=== PATIENT | male | born 1970 | race Caucasian/White ===

== ENCOUNTER 2018-11-28 17:13 | Emergency (ER) | payer OTHER ==
[~2018-11-28] VITALS: Ht 172.7 cm; Wt 107.5 kg
[2018-11-28 17:21] VITALS: Ht 172.7 cm; Wt 107.5 kg
[2018-11-28 19:06] LABS: CALCIUM 8.6 mg/dL (8.5-10.1); CARBON DIOXIDE 28.6 mmol/L (21-32); CHLORIDE SERUM 105 mmol/L (98-107); CREATININE SERUM 1.2 mg/dL (0.7-1.3); GFR1 > 60 mL/min; GLUCOSE SERUM 94 mg/dL (74-106); POTASSIUM SERUM 4.5 mmol/L (3.5-5.1); SODIUM SERUM 141 mmol/L (136-145)
[2018-11-28 19:11] LABS: ALKALINE PHOSPHATASE 92 U/L (46-116); ALT/SGPT 67 U/L (16-63); AST/SGOT 30 U/L (15-37); BILIRUBIN TOTAL 0.46 mg/dL (0.20-1.00); TOTAL PROTEIN, SERUM 7.2 g/dL (6.4-8.2)
[2018-11-28 19:12] LABS: ALBUMIN 3.3 g/dL (3.4-5.0)
[2018-11-28 19:22] LABS: BASOPHIL % 0.6 % (0-2); PLATELET COUNT 188 x10^3mcL (130-400)
[2018-11-28 19:25] LABS: RED CELL DISTRIBUTION WIDTH 15.1 % (11.5-14.5)
[2018-11-28 21:41] VITALS: BP 150/85
== END 2018-11-28 21:41 | disposition home or self-care (01) ==
LOC: ED 17:13
PROVIDERS: Emergency Medicine
DX: R06.00 Dyspnea, unspecified (principal); R06.02 Shortness of breath; I10 Essential (primary) hypertension; F31.9 Bipolar disorder, unspecified
CPT/HCPCS: 36415; 83880; 85378; Q0092

== ENCOUNTER 2019-02-20 16:50 | Inpatient (IN) | payer OTHER ==
[~2019-02-20] VITALS: Ht 172.7 cm; Wt 114.3 kg
[2019-02-20 16:59] VITALS: Ht 172.7 cm; Wt 114.3 kg
--- NOTE | 2019-02-20 17:03 | NUR ---
PT WAS B/B AMBULANCE FROM HOME. CO ABD PAIN ON LLQ STARTED IN AM. PAIN 9/10. PT WAS A/OX3, SPEAKS FULL SENTENCES, FOLLOWS COMMAND, DENIES LOVE AND DIZZNESS. NO SOB BREATHING EVEN.
--- NOTE | 2019-02-20 17:31 | NUR ---
PT WAS MEDICATED WITH PHENTANYL AND ZOFRAN FRO PAIN PER MD ORDER.
[2019-02-20 17:45] LABS: BASOPHIL % 0.4 % (0-2); PLATELET COUNT 150 x10^3mcL (130-400)
[2019-02-20 17:46] LABS: RED CELL DISTRIBUTION WIDTH 14.6 % (11.5-14.5)
[2019-02-20 18:00] LABS: CALCIUM 8.9 mg/dL (8.5-10.1); CARBON DIOXIDE 28.5 mmol/L (21-32); CHLORIDE SERUM 103 mmol/L (98-107); CREATININE SERUM 1.1 mg/dL (0.7-1.3); GFR1 > 60 mL/min; GLUCOSE SERUM 95 mg/dL (74-106); POTASSIUM SERUM 4.1 mmol/L (3.5-5.1); SODIUM SERUM 140 mmol/L (136-145)
[2019-02-20 18:03] LABS: ALBUMIN 4.2 g/dL (3.4-5.0); ALKALINE PHOSPHATASE 91 U/L (46-116); ALT/SGPT 77 U/L (16-63); AST/SGOT 29 U/L (15-37); BILIRUBIN TOTAL 1.57 mg/dL (0.20-1.00); LIPASE 139 IU/L (73-393); TOTAL PROTEIN, SERUM 7.6 g/dL (6.4-8.2)
[2019-02-20] MEDS ORDERED: XANAX0.5 MG PO (18:48)
[2019-02-20] MEDS ORDERED: SEROQUEL XR50 MG PO (18:49)
[2019-02-20] MEDS ORDERED: METOPROLOL SUCC50 M2 PO (18:50)
[2019-02-20] MEDS ORDERED: AMLODIPINE BESYL5 M2 PO (18:50)
--- NOTE | 2019-02-20 20:05 | NUR ---
PT AMBULATED TO OR [facility] FOR TRANSPORT TO OR. AT BEDSIDE.
[2019-02-20 22:31] VITALS: BP 135/87
--- NOTE | 2019-02-20 22:42 | NUR ---
RECEIVED PT FROM OR, PT ADMIT FOR APPENDICITIS. PT IS A/O X4, VERBAL RESPONSIVE. LUNG SOUND CLEAR BILATERAL, NO COUGH, NO SOB. PT IS ON 2L/MIN O2 VIA NC. PO2 96%, DENY ANY CHEST PAIN OR DISCOMFORT, BOWEL SOUND ABSCENT AT THIS MOMENT, S/P LAP APPY, 3 BANDAID, CDI FIRST DRESSING, UNABLE TO REMOVE TO TAKE PICTURE, PEDAL PULSE PRESENT BOTH FEET, NO EDEMA, IV AT LEFT AC, NO LEAKING, NO INFILTRATION. ALL ADLS ASSIST, ALL NEED MET, CALL LIGHT IN REACH, WILL CONTINUE TO MONITOR.
--- NOTE | 2019-02-20 22:45 | NUR ---
RECEIVED REPORT FROM ADMITTING NURSE, SRINIVAS SHERMAN. PT IN NO ACUTE DISTRESS. RESTING COMFORTABLY IN BED WITH AT BEDSIDE. WILL CONT TO MONITOR.
--- NOTE | 2019-02-20 23:10 | NUR ---
PT C/O ABD PAIN, MEDICATED WITH PRN MORPHINE PER APR. NO ACUTE DISTRESS NOTED. WILL CONT TO MONITOR.
--- NOTE | 2019-02-21 01:38 | NUR ---
PT C/O 07/27 ABD PAIN, MEDICATED WITH PRN TORADOL PER APR. NO ACUTE DISTRESS NOTED. WILL CONT TO MONITOR.
[2019-02-21 05:07] VITALS: BP 139/61
[2019-02-21 06:19] LABS: PLATELET COUNT 145 x10^3mcL (130-400)
[2019-02-21 06:44] LABS: ALBUMIN 3.4 g/dL (3.4-5.0); ALKALINE PHOSPHATASE 72 U/L (46-116); ALT/SGPT 64 U/L (16-63); AST/SGOT 25 U/L (15-37); BILIRUBIN TOTAL 1.71 mg/dL (0.20-1.00); CALCIUM 8.4 mg/dL (8.5-10.1); CARBON DIOXIDE 30.2 mmol/L (21-32); CHLORIDE SERUM 102 mmol/L (98-107); CREATININE SERUM 1.3 mg/dL (0.7-1.3); GFR1 > 60 mL/min; GLUCOSE SERUM 138 mg/dL (74-106); POTASSIUM SERUM 4.7 mmol/L (3.5-5.1); RED CELL DISTRIBUTION WIDTH 14.6 % (11.5-14.5); SODIUM SERUM 138 mmol/L (136-145); TOTAL PROTEIN, SERUM 6.9 g/dL (6.4-8.2)
--- NOTE | 2019-02-21 06:50 | NUR ---
PT SLEPT AT INTERVALS THROUGHOUT THE NIGHT, BREATHING EVEN AND UNLABORED ON 1L NC. NO SOB NOTED. ABD BANDAIDS CDI. PT STATES PASSIONG GAS. DENIES N/V. ALL NEEDS ASSESSED AND ATTENDED TO. BED AT LOWEST SETTING. SIDE RAILS X2 UP. CALL LIGHT WITHING REACH. WILL ENDORSE CARE TO AM NURSE.
--- NOTE | 2019-02-21 07:00 | NUR ---
RECEIVED REPORT FROM SOUMYA ESPINO AT BEDSIDE, PT SLEEPING IN BED IN NO APPARENT ACUTE DISTRESS
--- NOTE | 2019-02-21 07:30 | NUR ---
PT RESTING IN BED, IN NO ACUTE DISTRESS, VERBAL, ABLE TO MAKE NEEDS KNOWN, PERRLA, NO FACIAL DROOP/SLURRED SPEECH, NO REDNESS/DRAINGE EENT, DENIED LOVE/PAIN, DENIED N/V/D, MEDSURG, DENIED CP/PALPITATION, ABD ROUND AND NONTENDER TO TOUCH, DRESSING CDI, BS ACTIVE X 4, IV PATENT AND INFUSING WELL, DRESSING CDI, PALP PULSES, CAP REFILL < 3S, AMBULATORY, CONTINENT, SKIN C/D/W, EQUAL HAND BRICKMASON APPRENTICE, PASSED GAS, NO BM AT THIS TIME, PT TOLERATED CLEAR LIQUID DIET WELL, ALL NEEDS ADDRESSED, SAFETY PROTOCOL FOLLOWED, CONTINUE TO MONTIOR
[2019-02-21 08:05] VITALS: BP 106/63
--- NOTE | 2019-02-21 08:37 | NUR ---
SEEN BY DR FINE PULMOLOGIST AT BEDSIDE, QUESTION ASKED AND ANSWERED, NO FURTEHR CONCERN NEEDED WHEN ASKED, PER DR FINE, CT RESULT GIVEN TO PT FOR INFO, PT MADE AWARE, ALL NEEDS ADDRESSED AT THIS TIME, PT CALLED USING HOSPITAL PHONE, CHARGE NURSE VICKIE HOPKINS AWARE, CONTINUE TO MONITOR
[2019-02-21] MEDS ORDERED: NORCO1 TA2 PO (08:42)
[2019-02-21 08:57] LABS: BAND NEUTROPHIL 0 % (0-10); BASOPHIL 0 % (0-2); MONOCYTE 5 % (0-7); SEGMENTED NEUTROPHILS 93 % (37-75)
[2019-02-21 08:58] LABS: rbc morphology (normal/abnorm) ABNORMAL (NORMAL)
[2019-02-21 08:59] LABS: PLATELET MORPHOLOGY PLATELETS NORMAL
--- NOTE | 2019-02-21 10:30 | NUR ---
AM MEDs GIVEN PER MD ORDER, TOLERATED WELL, NO ASE NOTED AT THIS TIME, EDUCATED PT R/T MEDs, ASE AND MONITOR, VERBALLY UNDERSTANDING, SAFETY PROTOCOL MAINTAINED, CONTINUE TO MONITOR
[2019-02-21 11:35] VITALS: BP 106/63
--- NOTE | 2019-02-21 11:54 | NUR ---
PT AMBULATING ALONG HALLWAY, REPORT NO PAIN/DISCOMFORT AT THIS TIME, PT SAID WILL COME TO P/U IN THE AFTERNOON AFTER DC HOME, CHARGE NURSE VICKIE MADE AWARE
[2019-02-21 12:02] VITALS: BP 114/46
--- NOTE | 2019-02-21 14:23 | NUR ---
DC PAPER SIGNED BY PT, COPY KEPT IN CHART, IV REMOVED, IV CATH TIP PATENT, NO ACTIVE BLEEDING NOTED, PT MADE AWARE OF NEW PRESCRIPTION IN DC PACKAGE, EDUCATE PT R/T NEW MEDs, ASE AND MONITOR, DIET, VERBALLY UNDERSTANDING, PT MADE AWARE OF F/U W/ PCPC AND MANAGER ADMINISTRATIVE AFTER DC, PT SAID IT'S HIS REPONSIBILITY TO F/U W/ ALL NECCESSARY APPOINTMENT, NAME BAND REMOVED, BANDAID CHANGED, PIC OF SURGICAL WOUND TAKEN AND KEPT IN CHART, PT ASSISTED TO LOBBY BY NURSING STAFF, PT P/U BY , PT DC HOME W/ . PT LEAVE IN NO ACUTE DISTRESS.
== END 2019-02-21 14:26 | disposition home or self-care (01) | DRG 336 ==
LOC: ED 16:50 → MU 18:28
PROVIDERS: Emergency Medicine; Family Medicine Addiction Medicine; ADMIT Internal Medicine Nephrology
PROC: 0DNN4ZZ Release Sigmoid Colon, Percutaneous Endoscopic Approach (ICD-10-PCS; 2019-02-20)
PROC: 0DTJ4ZZ Resection of Appendix, Percutaneous Endoscopic Approach (ICD-10-PCS; principal; 2019-02-20 21:00)
DX: K35.891 Other acute appendicitis without perforation, with gangrene (principal); N17.9 Acute kidney failure, unspecified; K57.32 Diverticulitis of large intestine without perforation or abscess without bleeding; F31.9 Bipolar disorder, unspecified; I10 Essential (primary) hypertension; N28.1 Cyst of kidney, acquired; D72.829 Elevated white blood cell count, unspecified; K66.0 Peritoneal adhesions (postprocedural) (postinfection); Z79.899 Other long term (current) drug therapy
CPT/HCPCS: G0378; J0330; J1170; J1885; J2001; J2270; J2405; J2543; J2704; J2710; J3010; J3490; J7030; J7120

== ENCOUNTER 2019-08-13 00:46 | Emergency (ER) | payer OTHER ==
[~2019-08-13] VITALS: Ht 167.6 cm; Wt 110.2 kg
[~2019-08-13 00:46] MED LIST: AMLODIPINE BESYL5 M2 PO; METOPROLOL SUCC50 M2 PO; NORCO1 TA2 PO; SEROQUEL XR50 MG PO; XANAX0.5 MG PO
[2019-08-13 00:57] VITALS: Ht 167.6 cm; Wt 110.2 kg
[2019-08-13 02:32] VITALS: BP 174/92
== END 2019-08-13 02:32 | disposition home or self-care (01) ==
LOC: ED 00:46
DX: B02.9 Zoster without complications (principal); B02.29 Other postherpetic nervous system involvement; I10 Essential (primary) hypertension
CPT/HCPCS: J1885

== ENCOUNTER 2019-09-28 03:15 | Inpatient (IN) | payer OTHER ==
[~2019-09-28] VITALS: Ht 175.3 cm; Wt 120.0 kg
--- NOTE | 2019-09-28 03:31 | NUR ---
PT BIB [facility] FOR OVERDOSE / SI. PT REPORTS THAT HE TOOK APROX 40 TABLETS OF HIS PRESCRIBED SEROQUEL 50MG AT APPROX 0200. PT RPEORTS THAT HE HAD AN INTENTION TO HARM HIMSELF AND WANTS TO DUE TO GOING THROUGH A DIVORCE WITH HIS . PT SPEECH IS SLURRED BUT PT IS A/O X4. PT REPORTS THAT HE IS " TIRED" AND " TRYING TO CATCH HIS BREATH". PT PLACED ON 02 AT 2L/MIN AND IS SATURATION IS AT 96%. JACOBO CHEST RISE AND FALL NOTED. PT PLACED IN HOSPITAL GOWN WITH BELONGINGS PLACED IN RADIO ROOM FOR SAFE KEEPING. PT PLACED ON CM. VSS. PT IS ABLE TO FOLLOW COMMANDS AND IS COOPERATIVE AT THIS TIME. MSE COMPLETED BY DR GUZMAN
[2019-09-28 03:37] VITALS: Ht 175.3 cm; Wt 120.0 kg
--- NOTE | 2019-09-28 03:56 | NUR ---
SPOKE WITH PHIL FROM [facility]. INFORMED HER ABOUT THE PTS STATUS. DR GUZMAN WAS INFORMED OF ALL RECOMMENDATIONS AT THIS TIME.
--- NOTE | 2019-09-28 04:01 | NUR ---
PT OBERSERVED TO BE MOVING AROUND IN ED [facility]. PT APPEARS TO BE RESTLESS, PT STS "IM OK". JACOBO CHEST RISE AND FALL NOTED. RESPS ARE E/U. AUDIBLE SNORING
[2019-09-28 04:05] LABS: BASOPHIL % 0.4 % (0-2); PLATELET COUNT 133 x10^3mcL (130-400); RED CELL DISTRIBUTION WIDTH 14.5 % (11.5-14.5)
[2019-09-28 04:11] LABS: CALCIUM 8.4 mg/dL (8.5-10.1); CARBON DIOXIDE 27.3 mmol/L (21-32); CHLORIDE SERUM 108 mmol/L (98-107); CREATININE SERUM 1.5 mg/dL (0.7-1.3); GFR1 53 mL/min; GLUCOSE SERUM 132 mg/dL (74-106); POTASSIUM SERUM 4.3 mmol/L (3.5-5.1); SODIUM SERUM 143 mmol/L (136-145)
--- NOTE | 2019-09-28 04:12 | NUR ---
RT AT BEDSIDE FOR ABG DRAW
[2019-09-28 04:15] LABS: ALBUMIN 3.6 g/dL (3.4-5.0); ALKALINE PHOSPHATASE 68 U/L (46-116); ALT/SGPT 65 U/L (16-63); AST/SGOT 31 U/L (15-37); BILIRUBIN TOTAL 0.4 mg/dL (0.20-1.00); TOTAL PROTEIN, SERUM 6.6 g/dL (6.4-8.2)
--- NOTE | 2019-09-28 04:32 | NUR ---
PT UTILIZING URINAL AT BEDSIDE AT THIS TIME.
--- NOTE | 2019-09-28 04:34 | NUR ---
PT BELONGINGS BAG HAS PTS TSHIRT, BLACK SHOES, READING GLASSES, CAR KEYS, WALLET, AND BLACK CELL PHONE.
--- NOTE | 2019-09-28 06:23 | NUR ---
PT OBSERVED RESTING IN ED GURNEY AT THIS TIME. JACOBO CHEST RISE AND FALL NOTED. PT IS EASILY AROUSABLE. PT IS ABLE TO ANSWER ALL QUESTIONS APPROPRIATELY. NO ACD NOTED
--- NOTE | 2019-09-28 06:54 | NUR ---
PT MEDICATED PER EMAR ORDERS. PLEASE SEE EMAR. PT RESTING IN POSITION OF COMFORT. RESPS ARE E/U. PT GURNEY IN LOWEST POSITION FOR PT SAFETY.
--- NOTE | 2019-09-28 07:10 | NUR ---
PT REPORT GIVEN TO DAY SHIFT RN, THADDEUS. ALL QUESTIONS AND CONCERNS WERE ADDRESSED AT THIS AZEB.
--- NOTE | 2019-09-28 07:20 | NUR ---
RECEIVED PT FROM NIGHT NURSE. PT IS LAYING DOWN IN BED WITH HOB UP RESTING. PT LOOKS TO BE IN NO ACUTE DISTRESS AT THIS TIME. PT STATES THROAT FEELS SORE AT THIS TIME. PT STATES FEELING TIRED AT THIS TIME. PT DENIES ANY SI AT THIS TIME AND STATES, "IT WAS JUST A STUPID THING I DID, I DO NOT WANT TO DO IT AGAIN." PT IS CLEAR VIEW OF NURSES STATION. BELONGINGS IN RADIO ROOM IS PT MARKED BAG. PT LOOKS TO BE IN NO ACUTE DISTRESS AT THIS TIME. PT STATES NEEDING TO URINATE, PROVIDED PT WITH URINAL. WILL CONTINUE TO MONITOR.
[2019-09-28 09:11] LABS: UA SPECIFIC GRAVITY >=1.030 (1.005-1.035); microscopic required? YES; urine erythrocyte NEGATIVE (NEGATIVE)
--- NOTE | 2019-09-28 09:18 | NUR ---
CALL FROM [facility], GAVE THEM UPDATED VITALS, LAB RESULTS, & EKG FINDINGS. THEY WILL CALL TOMORROW TO F/U AGAIN & WE MAY CALL ANYTIME IF NEEDED.
[2019-09-28 09:31] LABS: AMPHETAMINE QUAL UR NONE DETECTED (See below)
--- NOTE | 2019-09-28 10:05 | NUR ---
CALLED AND GAVE REPORT TO SRINIVAS GRAY.
--- NOTE | 2019-09-28 10:22 | NUR ---
PAGED DR. CASTRO ABOUT DOWNGRADING PT FROM ICU. PT IS AOX4 AT THIS TIME, AWAKE AND ABLE TO FOLLOW COMMANDS. VITAL SIGNS STABLE.
--- NOTE | 2019-09-28 10:25 | NUR ---
PROVIDED PT WITH WATER AND JELLO PER DR. VINITA TRIPLETT. PT SWALLOW WITH NO DIFFICULTY.
--- NOTE | 2019-09-28 10:33 | NUR ---
SPOKE WITH DR. MOREIRA FROM [facility] AND WAS INFORMED PT NEEDS TO BE MONITORED BY CRITICAL CARE TEAM FOR 14 HOURS SO PT WILL STILL NEED TO GO TO ICU.
--- NOTE | 2019-09-28 12:39 | NUR ---
PT IS LAYING DOWN IN BED WITH HOB UP. PT LOOKS TO BE IN NO ACUTE DISTRESS. PROVIDED PT WITH LUNCH TRAY. WILL CONTINUE TO MONITOR.
--- NOTE | 2019-09-28 14:35 | NUR ---
PT RESTING IN GURNEY WITH EYES CLOSED, GOOD CHEST RISE AND FALL NOTED. NAD NOTED. PT REMAINS ON FULL CM AND IN DIRECT SIGHT OF NURSE'S STATION.
--- NOTE | 2019-09-28 15:09 | NUR ---
CALLED PT'S VIA CELL PHONE, INFORMED OF PT'S WHEREABOUTS. TRANSFERED PHONE TO PORTABLE PHONE, PT SPEAKING WITH AT THIS TIME. WILL CONTINUE TO [facility].
--- NOTE | 2019-09-28 16:01 | NUR ---
PT WAS SWABBED FOR COVID PER ER ROUTINE FOR EVENTUAL PSYCH FACILITY PLACEMENT ONCE MEDICALLY CLEARED
--- NOTE | 2019-09-28 18:29 | NUR ---
PT AMBULATED TO RESTROOM WITH STEADY GAIT. PROVIDED PT WITH NEW GOWN. PT NOW BACK IN BED AND LOOKS TO BE IN NO ACUTE DISTRESS. PT REQUESTING TO SPEAK WITH . PROVIDED PT WITH PHONE AND PT SPEAKING WITH AT THIS TIME. WILL CONTINUE TO MONITOR.
--- NOTE | 2019-09-28 18:56 | NUR ---
PT'S PRESENT TO CARBIDE TOOL DIE MAKER CAR KEYS. PER PT REQUEST, GAVE CAR GALLARDO AND PILL NOTTLE OF SEROQUEL, OTHER BELONGINGS IN RADIO ROOM.
--- NOTE | 2019-09-28 19:13 | NUR ---
PT IS LAYING DOWN IN BED WITH HOB UP RESTING. PT LOOKS TO BE IN NO ACUTE DISTRESS AT THIS TIME AND DENIES ANY PAIN. IV SITE PATENT AND INFUSING AT THIS TIME. RESPIRATIONS EVEN AND UNLABORED ON ROOM AIR. WILL ENDORSE TO ONCOMING SHIFT.
--- NOTE | 2019-09-28 19:34 | NUR ---
RECEIVED REPORT FROM SRINIVAS TRAVIS TO ASSUME PT CARE. PT REMAINS IN VIEW OF NURSES STATION FOR SAFETY. PT NOTED RESTING WITH EYES CLOSED, EASILY AROUSABLE TO VERBAL STIMULI. PT DENIES PAIN AT THIS TIME, PT REPORTS "IM OKAY, JUST TIRED". PT BREATHING E/U, VITAL SIGNS STABLE, NO S/S OF ACUTE DISTRESS NOTED.
--- NOTE | 2019-09-28 20:16 | NUR ---
PT RECIEVED WATER, CLEAN BLANKETS, AND JELLO AT THIS TIME. PT DENIES FOOD ALLERGIES. PT AMBULATED TO BATHROOM WITH STEADY GAIT NOTED. PT REMAINS IN UNOBSTRUCTED VIEW OF NURSES STATION FOR SAFETY. SIDE RAIL PADS REMAIN IN PLACE FOR SAFETY. PT IS A&OX4, BREATHING E/U, NO S/S OF ACUTE DISTRESS NOTED.
--- NOTE | 2019-09-28 20:33 | NUR ---
PT DENIES SI/HI AT THIS TIME.
--- NOTE | 2019-09-28 22:30 | NUR ---
PT AMBULATED TO BATHROOM WITH STEADY GAIT NOTED.
--- NOTE | 2019-09-28 22:31 | NUR ---
PT REQUESTING A SANDWHICH AT THIS TIME. PT DENIES FOOD ALLERGIES AT THIS TIME. PT IS A&OX4, BREATHING E/U, NO S/S OF ACUTE DISTRESS NOTED
--- NOTE | 2019-09-28 23:44 | NUR ---
PT NOTED RESTING IN BED IN A POSITION OF COMFORT WITH EYES CLOSED. PT REMAINS IN VIEW OF NURSES STATION FOR SAFETY. PT REMAINS ON FULL PARTY PLAN SALES DIRECTOR FOR SAFETY. BREATHING E/U, NO S/S OF ACUTE DISTRESS NOTED.
--- NOTE | 2019-09-29 00:19 | NUR ---
CALLED REPORT TO SRINIVAS CHERY TO ASSUME PT CARE. PT GOING TO ICU5
--- NOTE | 2019-09-29 00:30 | NUR ---
RECEIVED PT FROM ED, TRANSPORTED VIA [facility]. PT ACCOMPANIED BY NURSE. PT AAOX4. EENT FREE OF DISCHARGE, SWELLING, REDNESS. PT ON ROOM AIR. PT BREATHING E/U. LUNG SOUNDS CLEAR BILATERALLY. PT CONNECTED TO MENTAL HEALTH SOCIAL WORKER. HEART RHYTHM NSR. S1S2 AUSCULTATED. PT DENIES CHEST PAIN. PULSES MODERATE X4. CAP REFILL < 3 SEC. NO EDEMA PRESENT. SKIN INTACT. ABDOMEN OBESE, SOFT. BOWEL SOUNDS PRESENT. NO N/V, BM AT THIS TIME. PT VOIDS FREELY. PT ABLE TO AMBULATE SELF. PT SUFFERING FROM DEPRESSION, OVERDOSED ON 40, 50MG. TABLETS OF SEROQUEL. PT IN NO ACUTE DISTRESS AT THIS TIME. WILL CONTINUE TO MONITOR.
[2019-09-29 01:15] VITALS: BP 149/67
[2019-09-29 03:22] VITALS: BP 141/62
--- NOTE | 2019-09-29 03:38 | NUR ---
PT RESTING AT THIS TIME, IN NO ACUTE DISTRESS. WILL CONTINUE TO MONITOR.
[2019-09-29 06:29] LABS: BASOPHIL % 0.8 % (0-2); PLATELET COUNT 143 x10^3mcL (130-400)
[2019-09-29 06:41] LABS: ALBUMIN 3.5 g/dL (3.4-5.0); ALKALINE PHOSPHATASE 64 U/L (46-116); ALT/SGPT 66 U/L (16-63); AST/SGOT 28 U/L (15-37); BILIRUBIN TOTAL 0.5 mg/dL (0.20-1.00); CALCIUM 8.3 mg/dL (8.5-10.1); CARBON DIOXIDE 31.5 mmol/L (21-32); CHLORIDE SERUM 106 mmol/L (98-107); CREATININE SERUM 1.3 mg/dL (0.7-1.3); GFR1 > 60 mL/min; GLUCOSE SERUM 81 mg/dL (74-106); POTASSIUM SERUM 4.5 mmol/L (3.5-5.1); SODIUM SERUM 140 mmol/L (136-145); TOTAL PROTEIN, SERUM 6.7 g/dL (6.4-8.2)
[2019-09-29 06:43] LABS: RED CELL DISTRIBUTION WIDTH 14.6 % (11.5-14.5)
[2019-09-29 08:00] VITALS: BP 146/78
[2019-09-29 13:00] VITALS: BP 136/72
--- NOTE | 2019-09-29 13:15 | NUR ---
i CALLED REPORT TO BALJEET ESPINO. NO ACUTE ISSUES AT THIS TIME. THE PT WILL HAVE A SITTER.
--- NOTE | 2019-09-29 14:10 | NUR ---
RECEIVED PATIENT FROM ER VIA W/C. AMBULATED TO BED. ALERT AND ORIENTED, ABLE TO VERBALIZE NEEDS WELL. CALM COOPERATIVE. FINE TREMORS NOTED PATIENT'S BILAT HANDS. IVF INFUSING WELL TO LEFT HAND, HL ALSO PATENT ON RT HAND. PATIENT INSTURCTED ON HOW TO USE CALL LIGHT AND CALL LIGHT WITHIN REACH. 1-1 SITTER AT BEDSIDE. BED IS IN LOW POSITION AND LOCKED, SIDERAILS X 2 UP FOR SAFETY. WILL CONTINUE TO MONITOR.
--- NOTE | 2019-09-29 15:54 | NUR ---
PATIENT IN BED APPEARS TO BE RESTING WELL. 1-1 SITTER AT BEDSIDE. WILL CONTINUE TO MONITOR.
--- NOTE | 2019-09-29 17:19 | NUR ---
PATIENT'S PLAN OF CARE WAS DISCUSSED AND REVIEWED WITH EX ASSISTANT/PROGRAM DIRECTOR:BALJEET GROVE. I HAVE REVIEWED THE DATA COLLECTION BY EX ASSISTANT/PROGRAM DIRECTOR (NAME):BALJEET GROVE. ENTERED ON (DATE/TIME):09/29/19. I CONCUR WITH THE DATA AND ANY EXCEPTIONS OR COMMENTS ARE LISTED BELOW:
--- NOTE | 2019-09-29 17:43 | NUR ---
PATIENT REMAINS IN BED, AWAKE AND ALERT, CALM AND COOPERATIVE. IVF INFUSING WELL, SITE PATENT. MILD HAND TREMORS REMAIN NOTED. NO C/O PAIN OR DISCOMFORT. 1-1 SITTER AT BEDSIDE. NO ACUTE DISTRESS NOTED.
--- NOTE | 2019-09-29 18:30 | NUR ---
PATIENT TOLERATED DINNER TRAY WELL. CALM AND TALKATIVE, VERY PLEASANT. IVF INFUSING WELL, SITE PATENT. DENIES ANY PAIN OR DISCOMFORT AT THIS ITME. 1-1 SITTER AT BEDSIDE FOR SAFETY. NO ACUTE DISTRESS NOTED.
--- NOTE | 2019-09-29 19:10 | NUR ---
CARE ASSUMED FROM OUTGOING RN. PT RESTING COMFORTABLY IN BED. NO ACUTE DISTRESS NOTED. EVEN AND UNLABORED RESPIRATIONS ON RA. MEDSURG PT. IVS IN PLACE, INTACT. NO C/O PAIN OR SOB. NO SUICIDAL THOUGHTS OR IDEATION AT THIS TIME. SITTER AT BEDSIDE FOR SAFETY. BED IN LOWEST POSITION. SIDE RAILS UPX2. CALL LIGHT WITHIN REACH. WILL CONTINUE TO MONITOR.
--- NOTE | 2019-09-29 19:23 | NUR ---
Report received from outgoing shift. Patient not medically cleared. SW will notify call center when patient is cleared
[2019-09-29 20:11] VITALS: BP 156/84
--- NOTE | 2019-09-30 00:32 | NUR ---
PT RESTING COMFORTABLY IN BED. NO ACUTE DISTRESS NOTED. EVEN AND UNLABORED RESPIRATIONS ON RA. SITTER AT BEDSIDE. NO C/O PAIN OR SOB. IV PATENT AND INTACT RUNNING IVF PER EMAR, CHANGE NOT NEEDED AT THIS TIME. BED IN LOWEST POSITION. SIDE RAILS UPX2. CALL LIGHT WITHIN REACH. WILL CONTINUE TO MONITOR.
[2019-09-30 06:05] VITALS: BP 127/47
--- NOTE | 2019-09-30 06:21 | NUR ---
PT RESTED COMFORTABLY IN INTERVALS THROUGHOUT THE SHIFT. ALL NEEDS TENDED TO AND MET. ALL SCHEDULED MEDICATIONS GIVEN. NO C/O PAIN OR SOB AT THIS TIME. NO SUICIAL IDEATIONS/THOUGHT AT THIS TIME. SITTER AT BEDSIDE. BED IN LOWEST POSITION. SIDE RAILS UPX2. CALL LIGHT WITHIN REACH. WILL ENDORSE TO ONCOMING SHIFT.
[2019-09-30 07:08] VITALS: BP 146/84
[2019-09-30 07:32] LABS: ALBUMIN 3.8 g/dL (3.4-5.0); ALKALINE PHOSPHATASE 68 U/L (46-116); ALT/SGPT 93 U/L (16-63); AST/SGOT 36 U/L (15-37); BILIRUBIN TOTAL 0.6 mg/dL (0.20-1.00); CALCIUM 8.6 mg/dL (8.5-10.1); CARBON DIOXIDE 32.9 mmol/L (21-32); CHLORIDE SERUM 102 mmol/L (98-107); CREATININE SERUM 1.2 mg/dL (0.7-1.3); GFR1 > 60 mL/min; GLUCOSE SERUM 79 mg/dL (74-106); POTASSIUM SERUM 4.1 mmol/L (3.5-5.1); SODIUM SERUM 138 mmol/L (136-145); TOTAL PROTEIN, SERUM 7.3 g/dL (6.4-8.2)
--- NOTE | 2019-09-30 07:34 | NUR ---
REPORT TAKEN MAINTENANCE FOREMAN NURSE AT THE BEDSIDE, PATIENT AWAKE AND ALERT, DENIED SI OR HI AT THIS TIME, SITTER AT BEDSIDE, WILL CONTINUE TO MONITOR
[2019-09-30 11:12] VITALS: BP 150/90
[2019-09-30 11:52] VITALS: BP 150/90
--- NOTE | 2019-09-30 12:37 | NUR ---
PATIENT SIGNED DISCHARGE PAPERWORK, IV DC'D FROM RIGHT AND LEFT HAND, PATIENT TOLERATED WELL SITES DRESSED WITH COBAN AND GAUZE AFTER BLEEDING CONTROLLED. PATIENT RIDE WILL ARRIVE AT 1300, ADVISED TO CALL NURSE WHEN READY TO BE TAKEN TO LOBBY.
== END 2019-09-30 13:08 | disposition home or self-care (01) | DRG 918 ==
LOC: ED 03:15 → IC 04:38 → MU 09-29 14:38
PROVIDERS: Emergency Medicine; ADMIT Internal Medicine; ATTEND Internal Medicine
DX: T43.592A Poisoning by other antipsychotics and neuroleptics, intentional self-harm, initial encounter (principal); F29 Unspecified psychosis not due to a substance or known physiological condition; F31.9 Bipolar disorder, unspecified; I10 Essential (primary) hypertension; E66.9 Obesity, unspecified; Z79.899 Other long term (current) drug therapy; Z68.36 Body mass index [BMI] 36.0-36.9, adult
CPT/HCPCS: 36600; 82962; G0378; G0480; J1644; J2405; J7030; J7042; U0003-CS

== ENCOUNTER 2020-02-17 17:03 | Emergency (ER) | payer OTHER, SELFPAY ==
[~2020-02-17] VITALS: Ht 175.3 cm; Wt 106.6 kg
[2020-02-17 17:04] VITALS: BP 151/92; Ht 175.3 cm; Wt 106.6 kg
== END 2020-02-17 18:29 | disposition home or self-care (01) ==
LOC: ED 17:03
DX: M79.10 Myalgia, unspecified site (principal); R11.0 Nausea; R19.7 Diarrhea, unspecified; Z20.828 Contact with and (suspected) exposure to other viral communicable diseases
CPT/HCPCS: U0003

== ENCOUNTER 2020-02-21 09:19 | Emergency (ER) | payer OTHER, SELFPAY ==
[~2020-02-21] VITALS: Ht 175.3 cm; Wt 110.7 kg
[2020-02-21 09:23] VITALS: BP 157/97; Ht 175.3 cm; Wt 110.7 kg
== END 2020-02-21 10:42 | disposition home or self-care (01) ==
LOC: ED 09:19
DX: J40 Bronchitis, not specified as acute or chronic (principal); I10 Essential (primary) hypertension

== ENCOUNTER 2020-02-23 11:48 | Emergency (ER) | payer OTHER, SELFPAY ==
[~2020-02-23] VITALS: Ht 175.3 cm; Wt 106.6 kg
[2020-02-23 11:49] VITALS: BP 147/97; Ht 175.3 cm; Wt 106.6 kg
== END 2020-02-23 12:18 | disposition home or self-care (01) ==
LOC: ED 11:48
DX: R05 Cough (principal); R06.02 Shortness of breath; M79.10 Myalgia, unspecified site; Z20.828 Contact with and (suspected) exposure to other viral communicable diseases
CPT/HCPCS: U0003

== ENCOUNTER 2020-03-05 09:21 | Inpatient (IN) | payer OTHER, SELFPAY ==
[~2020-03-05] VITALS: Ht 172.7 cm; Wt 109.8 kg
[2020-03-05 09:27] VITALS: Ht 172.7 cm; Wt 109.8 kg
[2020-03-05 11:04] LABS: BASOPHIL % 0.4 % (0.2-1.5); PLATELET COUNT 296 x10^3mcL (152-348)
[2020-03-05 11:06] LABS: CALCIUM 8.6 mg/dL (8.5-10.1); CHLORIDE SERUM 106 mmol/L (98-107); CREATININE SERUM 1.1 mg/dL (0.7-1.3); GFR1 > 60 mL/min; GLUCOSE SERUM 94 mg/dL (74-106); POTASSIUM SERUM 4.3 mmol/L (3.5-5.1); RED CELL DISTRIBUTION WIDTH 15.8 % (12.1-16.2); SODIUM SERUM 141 mmol/L (136-145)
[2020-03-05 11:10] LABS: ALKALINE PHOSPHATASE 129 U/L (46-116); ALT/SGPT 192 U/L (16-63); AST/SGOT 74 U/L (15-37); BILIRUBIN TOTAL 0.6 mg/dL (0.20-1.00); C REACTIVE PROTEIN 7.5 mg/dL (<=0.9); LACTIC DEHYDROGENASE (LDH) 210 U/L (100-190); TOTAL PROTEIN, SERUM 6.8 g/dL (6.4-8.2)
[2020-03-05 11:11] LABS: ALBUMIN 2.7 g/dL (3.4-5.0)
[2020-03-05 11:13] LABS: microscopic required? NO
[2020-03-05 11:36] LABS: UA SPECIFIC GRAVITY >=1.030 (1.005-1.035); urine erythrocyte NEGATIVE (NEGATIVE)
[2020-03-05] MEDS ORDERED: LIPITOR10 MG (14:10)
[2020-03-05 20:02] VITALS: BP 155/70
[2020-03-06 05:40] VITALS: BP 131/93
[2020-03-06 08:00] LABS: BASOPHIL % 0.3 % (0.2-1.5); PLATELET COUNT 295 x10^3mcL (152-348)
[2020-03-06 08:30] VITALS: BP 144/97
[2020-03-06 08:59] LABS: RED CELL DISTRIBUTION WIDTH 15.5 % (12.1-16.2)
[2020-03-06 09:03] LABS: ALKALINE PHOSPHATASE 110 U/L (46-116); ALT/SGPT 149 U/L (16-63); AST/SGOT 46 U/L (15-37); BILIRUBIN TOTAL 0.6 mg/dL (0.20-1.00); CALCIUM 8.7 mg/dL (8.5-10.1); CARBON DIOXIDE 27.8 mmol/L (21-32); CHLORIDE SERUM 107 mmol/L (98-107); GFR1 > 60 mL/min; GLUCOSE SERUM 82 mg/dL (74-106); MAGNESIUM 2.3 mg/dL (1.8-2.4); POTASSIUM SERUM 4.3 mmol/L (3.5-5.1); SODIUM SERUM 143 mmol/L (136-145); TOTAL PROTEIN, SERUM 6.4 g/dL (6.4-8.2)
[2020-03-06 09:05] LABS: ALBUMIN 2.6 g/dL (3.4-5.0)
[2020-03-06 13:00] VITALS: BP 142/106
[2020-03-06 17:28] VITALS: BP 128/90
[2020-03-06 21:47] VITALS: BP 136/86
[2020-03-07 06:41] VITALS: BP 138/92
[2020-03-07 07:46] LABS: BASOPHIL % 0.2 % (0.2-1.5); PLATELET COUNT 333 x10^3mcL (152-348)
[2020-03-07 07:48] LABS: RED CELL DISTRIBUTION WIDTH 15.2 % (12.1-16.2)
[2020-03-07 07:59] LABS: ALKALINE PHOSPHATASE 105 U/L (46-116); ALT/SGPT 105 U/L (16-63); AST/SGOT 25 U/L (15-37); BILIRUBIN TOTAL 0.63 mg/dL (0.20-1.00); CALCIUM 8.6 mg/dL (8.5-10.1); CARBON DIOXIDE 27.1 mmol/L (21-32); CHLORIDE SERUM 104 mmol/L (98-107); GFR1 > 60 mL/min; GLUCOSE SERUM 72 mg/dL (74-106); MAGNESIUM 2.2 mg/dL (1.8-2.4); POTASSIUM SERUM 4.1 mmol/L (3.5-5.1); SODIUM SERUM 140 mmol/L (136-145); TOTAL PROTEIN, SERUM 6.5 g/dL (6.4-8.2)
[2020-03-07 08:00] LABS: ALBUMIN 2.7 g/dL (3.4-5.0)
[2020-03-07 10:28] VITALS: BP 126/77
[2020-03-07 13:15] VITALS: BP 129/92
[2020-03-07 18:18] VITALS: BP 129/94
[2020-03-07 20:52] VITALS: BP 138/63
[2020-03-08 05:04] VITALS: BP 132/84
[2020-03-08 07:47] LABS: BASOPHIL % 0.1 % (0.2-1.5); PLATELET COUNT 329 x10^3mcL (152-348)
[2020-03-08 07:56] LABS: ALBUMIN 2.8 g/dL (3.4-5.0); ALKALINE PHOSPHATASE 100 U/L (46-116); ALT/SGPT 97 U/L (16-63); AST/SGOT 18 U/L (15-37); BILIRUBIN TOTAL 0.52 mg/dL (0.20-1.00); CALCIUM 8.9 mg/dL (8.5-10.1); CARBON DIOXIDE 29.9 mmol/L (21-32); CHLORIDE SERUM 103 mmol/L (98-107); CREATININE SERUM 1.1 mg/dL (0.7-1.3); GFR1 > 60 mL/min; GLUCOSE SERUM 90 mg/dL (74-106); MAGNESIUM 2.3 mg/dL (1.8-2.4); POTASSIUM SERUM 4.4 mmol/L (3.5-5.1); SODIUM SERUM 138 mmol/L (136-145); TOTAL PROTEIN, SERUM 6.6 g/dL (6.4-8.2)
[2020-03-08 08:21] VITALS: BP 143/100
[2020-03-08 09:49] LABS: RED CELL DISTRIBUTION WIDTH 15.6 % (12.1-16.2)
[2020-03-08 12:33] VITALS: BP 133/80
[2020-03-08 16:33] VITALS: BP 117/80
[2020-03-08 22:15] VITALS: BP 125/82
[2020-03-09 05:23] VITALS: BP 138/92
[2020-03-09 08:49] VITALS: BP 140/93
[2020-03-09 10:30] LABS: BASOPHIL % 0.8 % (0.2-1.5); PLATELET COUNT 312 x10^3mcL (152-348)
[2020-03-09 11:21] LABS: ALKALINE PHOSPHATASE 110 U/L (46-116); ALT/SGPT 95 U/L (16-63); AST/SGOT 36 U/L (15-37); BILIRUBIN TOTAL 0.4 mg/dL (0.20-1.00); CARBON DIOXIDE 29.6 mmol/L (21-32); CHLORIDE SERUM 101 mmol/L (98-107); CREATININE SERUM 1.2 mg/dL (0.7-1.3); GFR1 > 60 mL/min; GLUCOSE SERUM 94 mg/dL (74-106); MAGNESIUM 2.2 mg/dL (1.8-2.4); POTASSIUM SERUM 3.9 mmol/L (3.5-5.1); SODIUM SERUM 140 mmol/L (136-145); TOTAL PROTEIN, SERUM 6.7 g/dL (6.4-8.2)
[2020-03-09 11:25] LABS: ALBUMIN 2.9 g/dL (3.4-5.0)
[2020-03-09 11:29] LABS: RED CELL DISTRIBUTION WIDTH 15.6 % (12.1-16.2)
[2020-03-09 12:14] VITALS: BP 144/84
[2020-03-09] MEDS ORDERED: LASIX40 MG PO (14:04)
[2020-03-09] MEDS ORDERED: ZES20 PO (14:04)
[2020-03-09] MEDS ORDERED: ZITHROMAX TRI-500 MG PO (14:06)
[2020-03-09] MEDS ORDERED: KEFLEX500 M1 PO (14:06)
[2020-03-09 16:33] VITALS: BP 114/80
== END 2020-03-09 16:41 | disposition home or self-care (01) | DRG 286 ==
LOC: ED 09:21 → DU 14:07
PROVIDERS: Emergency Medicine; Internal Medicine; ADMIT Internal Medicine; ATTEND Internal Medicine
PROC: B2111ZZ Fluoroscopy of Multiple Coronary Arteries using Low Osmolar Contrast (ICD-10-PCS; 2020-03-08)
PROC: B2151ZZ Fluoroscopy of Left Heart using Low Osmolar Contrast (ICD-10-PCS; 2020-03-08)
PROC: 4A023N7 Measurement of Cardiac Sampling and Pressure, Left Heart, Percutaneous Approach (ICD-10-PCS; principal; 2020-03-08 08:30)
DX: I11.0 Hypertensive heart disease with heart failure (principal); J18.1 Lobar pneumonia, unspecified organism; J45.901 Unspecified asthma with (acute) exacerbation; I31.8 Other specified diseases of pericardium; Z20.822 Contact with and (suspected) exposure to COVID-19; I10 Essential (primary) hypertension; F31.9 Bipolar disorder, unspecified; Z82.49 Family history of ischemic heart disease and other diseases of the circulatory system; E78.5 Hyperlipidemia, unspecified; J45.909 Unspecified asthma, uncomplicated; J20.9 Acute bronchitis, unspecified; F41.9 Anxiety disorder, unspecified; I42.0 Dilated cardiomyopathy; N28.89 Other specified disorders of kidney and ureter
CPT/HCPCS: CLHCL; 36600; 76937; 83880; 85378; 87804; 90732; C1760; C1769; C1894; G0378; J0456; J0696; J1100; J1644; J1650; J1940; J2250; J3010; J3490; J3535; J7030; J7050; J7060; Q9967; U0003